=== PATIENT | female | born 1960 | race Caucasian/White ===

== ENCOUNTER 2016-10-07 17:21 | Emergency (ER) | payer OTHER ==
[~2016-10-07 17:21] MED LIST: ASPIRIN81 MG PO; PRAVASTATIN SOD10 MG PO
[2016-10-07 17:57] LABS: BILIRUBIN NEGATIVE (NEGATIVE); BLOOD NEGATIVE Ery/uL (NEGATIVE); CLARITY CLEAR (CLEAR); COLOR YELLOW (YELLOW); GLUCOSE (U) NORMAL (NORMAL); KETONE (U) TRACE mg/dL (NEGATIVE); LEUKOCYTES NEGATIVE Leu/uL (NEGATIVE); NITRITE NEGATIVE (NEGATIVE); PROTEIN NEGATIVE (NEGATIVE)
[2016-10-07 18:04] LABS: BASOPHIL 0.7 % (0-2); EOSINOPHIL 1.6 % (0-5); HCT 49.1 % (37.0-47.0); HGB 16.6 g/dl (12.5-16.0); LYMPHOCYTE 36.1 % (15-48); MCH 31.9 pg (25.0-31.0); MCHC 33.8 g/dL (32.0-36.0); MCV 94.4 fL (78.0-100.0); MONOCYTE 9.3 % (0-12); MPV 9.9 fL (6.0-9.5); NEUTROPHIL 52.3 % (41-80); PLT 287 K/uL (150-400); RDW 13.2 % (11.5-14.0); WBC 7.3 K/uL (4.0-10.5)
[2016-10-07 18:14] LABS: ALBUMIN 4.5 g/dL (3.5-5.0); BILIRUBIN - TOTAL 0.7 mg/dL (0.1-1.0); CREATININE 0.9 mg/dL (0.5-1.0); GLOBULIN (CALCULATION) 2.8 g/dL (2.2-4.2); MAGNESIUM 2.21 mg/dL (1.40-2.10); PHOSPHORUS 3.2 mg/dL (2.7-4.5); POTASSIUM 3.2 mmol/L (3.5-5.1); TOTAL PROTEIN 7.3 g/dL (6.4-8.3)
[2016-10-07 18:15] LABS: TROPONIN T < 0.010 ng/mL
== END 2016-10-07 20:04 | disposition home or self-care (01) ==
LOC: FER 17:21
PROVIDERS: Emergency Medicine
DX: K57.30 Diverticulosis of large intestine without perforation or abscess without bleeding (principal); N20.0 Calculus of kidney; E87.6 Hypokalemia; R06.02 Shortness of breath; R07.89 Other chest pain; I10 Essential (primary) hypertension
CPT/HCPCS: 36415; 71020; 80053; 81003; 82150; 82553; 83690; 83735; 84100; 84484; 85025; 93005; C9113; J2405; J2765